=== PATIENT | female | born 1960 | race Caucasian/White ===

== ENCOUNTER 2017-09-22 20:18 | Inpatient (IN) | payer BC ==
[2017-09-22] MEDS ORDERED: Propofol 1,000 MG/100 ML VIAL IV ONE (20:49)
[2017-09-22 20:51] LABS: Bilirubin Negative (Negative); Blood, Urine Trace (Negative); Clarity CLEAR (Clear); Glucose, Urine (Dipstick) Negative (Negative); Leukocyte Negative (Negative); Nitrite Negative (Negative); Protein, Urine (Dipstick) Negative (Neg-Trace); Specific Gravity, Urine 1.003 (1.002-1.036); Urobilinogen 0.2 mg/dL (0.2-1.0); pH, Urine 8.5 (5.0-9.0)
[2017-09-22 20:54] LABS: Bacteria/HPF None Seen HPF (None Seen); Hyaline Casts/LPF 0-3 HYALINE CAST LPF (0-3 Hyaline); RBC/HPF 0-3 HPF (0-3); Squamous Epithelial 0-3 HPF (0-3); WBC/HPF 0-3 HPF (0-3)
[2017-09-22] MEDS ORDERED: levETIRAcetam 500 MG/100 ML PREMIX BAG ONE (21:24)
[2017-09-22 21:28] LABS: pH, Arterial 7.54 (7.35-7.45)
[2017-09-22 21:29] LABS: Actual Bicarbonate (HCO3a) 27.9 mEq/L (22-28); Analyzer IN Cardio ER; Base Excess (BEa) 5.4 mEq/L (-2.0 to +3.0); CO2 Tension 33.6 mmHg (35.0-45.0); Hematocrit-ABG 44.6 % (36.0-47.0); Hemoglobin (Hb) 11.8 g/dL (12.0-16.0); O2 Tension (PaO2) 229.8 mmHg (80.0-100.0)
[2017-09-22 21:30] LABS: Puncture Site LBA
--- NOTE | 2017-09-22 21:46 | RAD ---
AP VIEW OF THE CHEST 09/22/17 INDICATION: Intubation. COMPARISON: Prior exam performed on 09/22/17. FINDINGS: Since the comparison examination, there has been interval development of right upper lobe atelectasis . Left lung is clear. ET tube tip is seen 2.7 cm from the level of the al. No acute osseous abnor mality is evident. IMPRESSION: Intubated with right upper lobe atelectasis. Findings were called to Dr. Muñoz at 8:42 p.m. The findings may be related to mucus plugging or pos sibly aspiration. Occlusion of an aberrant right upper lobe bronchus cannot be entirely excluded. Thi s is a new finding from the most recent comparison performed at 6:54 p.m. Code CR POS: [facility]
[2017-09-22 21:56] LABS: Osmolality, Serum 233 mOsm/kg (280-295)
[2017-09-22] MEDS ORDERED: Dextrose 50% Abboject 50 ML SYRINGE SLOW IVP PRN (23:14)
[2017-09-22] MEDS ORDERED: Dextrose 5% in Water 1,000 ML IV PRN (23:14)
[2017-09-22] MEDS ORDERED: HumaLOG 300 UNITS/3 ML VIAL SC PRN (23:14)
[2017-09-22] MEDS ORDERED: Lorazepam 2 MG/ML VIAL SLOW IVP PRN (23:37)
[2017-09-23] MEDS ORDERED: Fentanyl BOLUS 250 ML IVPB PRN (00:35)
[2017-09-23] MEDS ORDERED: Propofol BOLUS 1,000 MG/100 ML VIAL IV PRN (00:35)
[2017-09-23] MEDS ORDERED: Lorazepam 2 MG/ML VIAL SLOW IVP PRN (00:35)
[2017-09-23] MEDS ORDERED: DISCONTINUE PREVIOUS NARCOTIC PAIN MEDICATIONS AND BENZODIAZEPINES FS SCH (00:35)
[2017-09-23] MEDS ORDERED: fentaNYL Citrate/PF 2,000 MCG in Sodium Chloride 0.9% 60 ML IV SCH (00:35)
[2017-09-23] MEDS ORDERED: Propofol 1,000 MG/100 ML VIAL IV ONE (00:43)
[2017-09-23] MEDS: Propofol 1,000 MG/100 ML VIAL IV PRN ×6 (00:44→22:33)
[2017-09-23] MEDS ORDERED: Ventilator Sedation Protocol 1 EACH FS SCH (00:45)
--- NOTE | 2017-09-23 03:01 | HP ---
CC: Unresponsiveness HISTORY OF PRESENT ILLNESS: Patient is a 56-year-old female with past medical history of anxiety and chronic alcohol use. Patient is presenting with unresponsiveness. History was obtained from EMS. Per EMS, the patient must have had status post seizure and was found down. Patient was last seen 4 days ago; therefore, the patient was known well. Per EMS, Ativan was given and the patient was intubated and the patient was brought to the hospital. In the hospital, in the ED, the patient obtained a CT of the head which showed subdural hematoma. The patient was also noted to have hypertension. At that time, the patient's labs were drawn and showing hyponatremia. The patient was then intubated and placed on the vent with respiratory rate of 12, tidal volume of 450, PEEP of 5. In the ED, the patient received Keppra 500 mg IV push and was started on propofol. Of note, patient was here in the hospital in 2014, the patient at that time was hyponatremic. REVIEW OF SYSTEMS: Cannot be obtained. Patient is currently intubated. PAST MEDICAL HISTORY: Obtained from previous records which showed history of anxiety, chronic alcohol use. PAST SURGICAL HISTORY: Per records, the patient does not have any past medical history. HOME MEDICATIONS: The patient takes Risperdal 0.5 mg per past medical history. At this point, patient is intubated. We will clarify with the patient. ALLERGIES: Patient is allergic to BLUE DYES. SOCIAL HISTORY: The patient is a chronic alcohol abuser. Per records, the patient does not smoke or use any recreational drugs. FAMILY HISTORY: Per chart, patient has family history which is relevant for coronary artery disease. PHYSICAL EXAMINATION: VITAL SIGNS: Blood pressure was 180/101, pulse is 71, respiratory rate of 12, oxygen saturation 99% on the ventilator. On admission, the patient's blood pressure was 149/96, pulse of 69, respiratory rate of 12, temperature of 100.8. GENERAL APPEARANCE: Patient is lying in bed. Patient is intubated, unresponsive on a propofol drip. GCS of 70. HEENT: Patient's pupil are reactive to light, closed. Mucous membranes are dry. NECK: Supple. CARDIOVASCULAR: Positive S1, S2. No murmurs, no rubs, no gallops appreciated. LUNGS: Clear to auscultation bilaterally, with ventilator lung sounds appreciated. ABDOMEN: Soft, nontender, nondistended, obese abdomen. EXTREMITIES: No edema noted. SKIN: Intact. No rashes. Warm and dry. NEUROLOGIC: Patient is currently intubated with a GCS of 70. PSYCHIATRIC: The patient is intubated. LABORATORY DATA: ABGs that was done in the ED showed a pH of 7.52, CO2 of 33.6 , oxygen tension of 229, base excess of 5.4. Sodium was 115. Serum osmolality is 233. Urine osmol is 123. CT of the head showed subdural hematoma which was 4 mm x 3.5 cm long. ASSESSMENT AND PLAN: This is a 56-year-old female with past medical history of anxiety and a history of hyponatremia, being admitted in the ICU for, 1. Respiratory failure most likely due to status post seizure. Patient was given Ativan on the field. The patient was intubated, currently on IV Keppra. Neurology has been consulted. We will do neuro checks q.2 hours. 2. Subdural hematoma, most likely secondary to fall. At this point, Neurosurgery has been consulted. We will monitor the hematoma closely. We will monitor blood pressure. We will try and keep blood pressure below 100. 3. Hypo-osmolar hyponatremia, most likely due to syndrome of inappropriate antidiuretic hormone secretion. The patient has urine-spot sodium of 31, urine osmol of 123 and serum osmol of 233. At this point, we will consult Nephrology and we will monitor the patient's sodium very closely. The patient will benefit from hypertonic saline; however, we will leave that up to Nephrology for their recommendations. 4. Acute respiratory failure. We will continue the patient on the vent. Currently, the patient's vent settings are patient's respiratory rate of 12, tidal volume of 450, PEEP of 5 and FiO2 of 50%. We will do morning ABGs. We will adjust ventilator settings accordingly. We have consulted Pulmonology. 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 5. History of anxiety. Patient is currently intubated. We will monitor the patient. 6. Deep venous thrombosis and gastrointestinal prophylaxis. We will do Pepcid for gastrointestinal prophylaxis and we will do SCDs for DVT prophylaxis. We will hold off all anticoagulation since patient is having intracranial bleed. DISPOSITION: At this point, we have admitted the patient to CCU. We will monitor the patient closely and we will follow up on morning labs and consultants. RAHUL
[2017-09-23 04:26] LABS: #Lymphocytes 1.3 thou/uL (1.20-3.40); #Monocytes 1.1 thou/uL (0.11-0.59); #Neutrophils 5.8 thou/uL (1.40-6.50); %Basophils 0.3 % (0.0-1.0); %Eosinophils 0.1 % (0.0-10.0); %Neutrophils 70.7 % (42.0-75.0); Hemoglobin 12.2 g/dL (12.0-16.0); Mean Corpuscular HGB CONC 36.4 g/dL (32.0-36.0); Mean Corpuscular Hemoglobin 31.8 pg (27.0-31.0); Mean Corpuscular Volume 87.4 fL (78.0-98.0); Mean Platelet Volume 6.5 fL (7.4-10.4); Platelet Count 254 thou/uL (130-400); RBC Distribution Width 11.2 % (11.5-14.5); Red Blood Cell (RBC) Count 3.82 mill/uL (4.20-5.40); White Blood Cell (WBC) Count 8.2 thou/uL (4.8-10.8)
[2017-09-23 04:38] LABS: ALT (SGPT) 28 U/L (8-55); AST (SGOT) 50 U/L (5-34); Albumin 4.1 g/dL (3.5-5.0); Alkaline Phosphatase 40 U/L (40-150); Anion Gap 14 mmol/L (10-20); BUN (Urea Nitrogen) 5 mg/dL (9.8-20.1); Calc. Creatinine Clearance 106 mL/min (70-130); Calcium 9.3 mg/dL (7.8-10.44); Carbon Dioxide 30 mmol/L (22-29); Chloride 80 mmol/L (98-107); Estimated GFR-MDRD 83; Globulin 2.8 g/dL (2.4-3.5); Glucose 92 mg/dL (70-105); Potassium 3.2 mmol/L (3.5-5.1); Protein, Total 6.9 g/dL (6.0-8.3); Sodium 121 mmol/L (136-145)
[2017-09-23 07:09] LABS: Actual Bicarbonate (HCO3a) 27.5 mEq/L (22-28); Base Excess (BEa) 6.1 mEq/L (-2.0 to +3.0); CO2 Tension 29.9 mmHg (35.0-45.0); Calcium, Ionized 1.1 mmol/L (1.12-1.30); Hemoglobin (Hb) 12.8 g/dL (12.0-16.0); O2 Tension (PaO2) 88.7 mmHg (80.0-100.0); Puncture Site RR; pH, Arterial 7.58 (7.35-7.45)
[2017-09-23 07:10] LABS: ALV-art Gradient 157.125 (0-20)
[2017-09-23] MEDS ORDERED: CCU Electrolyte Replacement 1 EACH FS ONE (08:16)
[2017-09-23] MEDS ORDERED: Potassium Phosphate 15 MMOL in Sodium Chloride 0.9% 250 ML 250 ML IV PRN (08:25)
[2017-09-23] MEDS ORDERED: Potassium Chloride 40 MEQ in Sodium Chloride 0.9% 250 ML 250 ML IVPB PRN (08:25)
[2017-09-23] MEDS ORDERED: Potassium Phosphate 12 MMOL in Sodium Chloride 0.9% 250 ML 250 ML IV PRN (08:25)
[2017-09-23] MEDS ORDERED: Magnesium 2 GM/NS 0.9% 100 ML 2 GM in Premix Bag 1 BAG IVPB PRN (08:25)
[2017-09-23] MEDS ORDERED: Potassium Chloride 40 MEQ in Premix Bag 1 BAG IVPB PRN (08:25)
[2017-09-23] MEDS ORDERED: CCU ELECTROLYTE REPLACEMENT PROTOCOL FS PRN (08:25)
[2017-09-23] MEDS ORDERED: Potassium Phosphate 9 MMOL in Sodium Chloride 0.9% 100 ML IVPB PRN (08:25)
[2017-09-23] MEDS ORDERED: Potassium Chloride 20 MEQ TAB PO PRN (08:25)
[2017-09-23] MEDS ORDERED: Magnesium Oxide 400 MG TAB PO PRN ×2 (08:25)
--- NOTE | 2017-09-23 08:34 | RAD ---
PORTABLE CHEST: Date: 09/22/17 HISTORY: Intubation. CCU follow-up. COMPARISON: 09/22/17. FINDINGS: ET tube and NG tube are noted. There is focal atelectasis and/or infiltrate in the medial right lung base, which is new. Evidence of small bilateral effusions. Upper lung jauregui are clear. IMPRESSION: New focal infiltrate or atelectasis in the medial right lung base. POS: [facility]
[2017-09-23 08:38] LABS: ALT (SGPT) 31 U/L (8-55); AST (SGOT) 52 U/L (5-34); Alkaline Phosphatase 42 U/L (40-150); Anion Gap 16 mmol/L (10-20); BUN (Urea Nitrogen) 5 mg/dL (9.8-20.1); Bilirubin, Total 0.9 mg/dL (0.2-1.2); Calc. Creatinine Clearance 112 mL/min (70-130); Calcium 9.3 mg/dL (7.8-10.44); Carbon Dioxide 28 mmol/L (22-29); Chloride 82 mmol/L (98-107); Estimated GFR-MDRD 89; Globulin 2.9 g/dL (2.4-3.5); Glucose 90 mg/dL (70-105); Protein, Total 6.9 g/dL (6.0-8.3); Sodium 123 mmol/L (136-145)
[2017-09-23] MEDS: Famotidine/PF 20 mg/2ml Vial SLOW IVP SCH ×2 (08:44→21:13)
--- NOTE | 2017-09-23 08:45 | CT ---
PRELIMINARY REPORT/[facility]/EMERGENTY AFTER-HOURS PROCEDURE Addendum created by Nicho Muse MD on 09/23/2017 3:55 AM Central Time ([place] & [place]) There is a small left frontotemporal subdural hematoma spanning 2 cm in maximum dimension and 3-4 mm in thickness. Initial Report created on 09/23/2017 3:50 AM Central Time ([place] & [place]) CT Head Without Intravenous Contrast EXAM DATE/TIME: 09/23/2017 3:39 AM CLINICAL HISTORY: 56 years old, female; Condition or disease; Other: Sdh; Patient HX: F/u sdh TECHNIQUE: Axial computed tomography images of the head/brain without intravenous contrast. COMPARISON: No relevant prior studies available. FINDINGS: Brain: Equivocal trace extra-axial blood along the superior falx cerebri. No prior studies for compar kyung. Brain otherwise unremarkable. No edema. Ventricles: Normal. No ventriculomegaly. Bones/joints: Normal. No acute fracture. Sinuses: Small hyperdense fluid levels in the left maxillary sinus and sphenoid sinus are probably bl ood related to trauma. Sinusitis not excluded. Mastoid air cells: Normal as visualized. No mastoid effusion. Soft tissues: Right parietal and right temporal scalp hematomas. Nasopharynx: Fluid secretions in the dependent nasopharynx. IMPRESSION: 1. Equivocal trace extra-axial blood along the superior falx cerebri. No prior studies for comparison . 2. Small hyperdense fluid levels in the left maxillary sinus and sphenoid sinus are probably blood re lated to trauma. Sinusitis not excluded. Thank you for allowing us to participate in the care of your patient. Dictated and Authenticated by: Nicho Muse MD 09/23/2017 3:50 AM Central Time ([place] & [place]) FINAL REPORT CT HEAD NONCONTRAST PERFORMED ON AN EMERGENCY BASIS: Date: 09/23/17 Time: 0339 hours HISTORY: Intracranial hematoma. Follow-up. COMPARISON: 09/22/17. FINDINGS: Findings agree with the preliminary report by Manuela. The left frontal subdural hematoma is much less c onspicuous than on the prior study. Barely visible on the current exam. Subtle hyperdensity along the anterior falx could represent a very small subdural component. No significant mass effect or shift o f midline structures. Prominent right frontoparietal scalp injury is again demonstrated. POS: [facility]
[2017-09-23] MEDS: Sodium Chloride 0.9% 1,000 ML IV SCH ×3 (08:47→21:18)
[2017-09-23 08:49] LABS: Potassium 2.6 mmol/L (3.5-5.1)
--- NOTE | 2017-09-23 09:45 | CON ---
DATE OF CONSULTATION: 09/22/2017 ATTENDING PHYSICIAN: Tremaine Carlos M.D. HISTORY OF PRESENT ILLNESS: The patient is a 56-year-old female who was transferred out to us from facility in [place] for altered mental status, subdural hematoma, and electrolyte abnormalities. History is obtained per EMS, it is limited by current condition and lack of family at the bedside. The patient was reportedly seen normal 4 days ago. She was found down earlier today by her daughter in the kitchen with blood on the floor near her. EMS was contacted and brought her to [facility] ER where she was evaluated with a CT head which was notable for a small left subdural hematoma. Her GCS was reportedly 9 at that time and she was awake and following some commands; however , she became somnolent and subsequently required intubation. She was transferred to our facility for further management. Other abnormalities were hyponatremia 115 and an elevated white count of 11.3, elevated lactic acid, 7.7 , and elevated CK-MB 24. I am seeing the patient at the bedside in the Emergency Department at [place]. She is currently intubated and sedated. Her pupils are small, equal, nonreactive. She currently has no cough or gag reflex. She has a decorticate posturing and is not withdrawing to pain at this time. She is not overbreathing the ventilator. PAST MEDICAL HISTORY: Notable for hypertension per previous records. PAST SURGICAL HISTORY: Left ovarian cyst removal. SOCIAL HISTORY: The patient reportedly drinks socially. No history of drug or smoking use according to prior records. FAMILY HISTORY: Noncontributory. ALLERGIES: The patient is allergic to BLUE DYE. CURRENT MEDICATION LIST: Unobtainable. REVIEW OF SYSTEMS: Unobtainable secondary to patient condition. PHYSICAL EXAMINATION: VITAL SIGNS: Blood pressure is 156/89; pulse of 65; respirations, patient is currently being mechanically ventilated; she is 98% on the ventilator. HEENT: Head: She has soft tissue swelling over the right posterior aspect of the scalp with small laceration to the right occipital region. Eyes: Pupils are small, fixed, and nonreactive. ENT: The patient is currently intubated. RESPIRATORY: She is being mechanically ventilated. CARDIOVASCULAR: Regular rate and rhythm. NEUROLOGIC: GCS 3, decorticate posturing. ASSESSMENT AND PLAN: The patient was found down for unknown period of time, last seen normal 4 [address] with a [address] head was shows small left-sided subdural hematoma which is consistent with contre coup injury. This is not adequately explained her current neurologic condition. She has multiple electrolyte abnormalities including elevated white counts, hyponatremia, elevated lactic acid. Unclear etiology that will need additional workup with a tox screen. We will plan to continue to monitor subdural intracranial bleed with repeat a.m. CT. Head of the bed should be elevated to 30 degrees and no anticoagulants should be given at this time. SBP less than 150. The patient should also be continued antiepileptics and I will order 500 mg of Keppra IV b.i.d. I have discussed this plan with Dr. Carlos who is in agreement. [facility]PITALZulay
[2017-09-23] MEDS: Potassium Chloride 20 MEQ in Premix Bag 1 BAG IVPB SCH ×4 (09:49→23:38)
--- NOTE | 2017-09-23 11:34 | PDOC.PN ---
- Subjective Encounter Start Date: 09/23/17 Encounter Start Time: 11:32 Subjective: intubated, sedated. when off sedation, uncooperative, tries to extubate charmaine - Objective MAR Reviewed: Yes Vital Signs & Weight: Vital Signs (12 hours) Temp Pulse Resp BP Pulse Ox 09/23/17 10:15 94 111/70 09/23/17 08:00 101.2 F H 09/23/17 07:32 89 134/76 99 09/23/17 06:00 16 09/23/17 04:00 16 09/23/17 03:00 99.7 F H 09/23/17 02:00 15 09/23/17 00:00 16 Weight Admit Weight 167 lb 11.2 oz Weight 167 lb 11.2 oz Most Recent Monitor Data Heart Rate from ECG 74 NIBP 112/78 NIBP BP-Mean 89 Respiration from ECG 15 SpO2 100 I&O: 09/22/17 09/23/17 09/24/17 06:59 06:59 06:59 Intake Total 223 300 Output Total 2950 415 Balance -2727 -115 Result Diagrams: 09/23/17 03:27 09/23/17 08:03 Phys Exam - Physical Examination Neck: no JVD Respiratory: clear to auscultation bilateral Cardiovascular: RRR, no significant murmur Gastrointestinal: soft, positive bowel sounds Musculoskeletal: pulses present, edema present Neurological: non-focal Dx/Plan (1) Encephalopathy acute Code(s): G93.40 - ENCEPHALOPATHY, UNSPECIFIED Status: Acute (2) Subdural hematoma Code(s): S06.5X9A - TRAUM SUBDR HEM W LOC OF UNSP DURATION, INIT Status: Acute (3) Hyponatremia Code(s): E87.1 - HYPO-OSMOLALITY AND HYPONATREMIA Status: Acute (4) Acute respiratory failure with hypoxia Code(s): J96.01 - ACUTE RESPIRATORY FAILURE WITH HYPOXIA Status: Acute (5) Alcohol abuse Code(s): F10.10 - ALCOHOL ABUSE, UNCOMPLICATED Status: Chronic - Plan vent per pulmonology -: replace Na, monitor -: replace K+ -: viamins -: discuss with NS, sheather * .
[2017-09-23] MEDS: Acetaminophen 650 MG Suppository PR PRN ×2 (11:37→21:19)
[2017-09-23 11:42] LABS: Amphetamine Not Detected (NotDetected); Barbiturates Screen Not Detected (NotDetected); Benzodiazepine Screen Detected (NotDetected); Cocaine Metabolite Screen Not Detected (NotDetected); Medtox Control Line Valid? VALID (VALID); Medtox Reader # READER 4; Methadone Not Detected (NotDetected); Methamphetamine Not Detected (NotDetected); Opiate Screen Not Detected (NotDetected); Oxycodone Screen Not Detected (NotDetected); Phencyclidine (PCP) Not Detected (NotDetected); THC/Cannabinoid Screen Not Detected (NotDetected); Tricyclic Screen Not Detected (NotDetected)
--- NOTE | 2017-09-23 12:20 | CON ---
DATE OF CONSULTATION: 09/23/2017 CONSULTING PHYSICIAN: Ronnie Pickering D.O. from the [facility]. REASON FOR CONSULTATION: Acute respiratory failure. HISTORY OF PRESENT ILLNESS: History is taken by reviewing the records in the chart. The patient cannot give history and family is not available. This is a 56-year-old female who apparently is a heavy drinker. She was found unresponsive at home. It was thought that she may have had a seizure. She was intubated. She was given some Keppra. She was found to have severe hyponatremia. She is also found to have a small left-sided subdural hematoma. PAST MEDICAL HISTORY: Chronic alcohol use. PAST SURGICAL HISTORY: None. MEDICATIONS PRIOR TO ADMISSION: Risperdal. ALLERGIES: BLUE DYE. SOCIAL HISTORY: Chronic alcohol use. Does not smoke, does not use illicit drugs. FAMILY MEDICAL HISTORY: Remarkable for coronary artery disease. REVIEW OF SYSTEMS: Cannot be obtained as patient is currently on mechanical ventilation. PHYSICAL EXAMINATION: VITAL SIGNS: Temperature 99.7, pulse 79, blood pressure 134/76, O2 sat 100%. GENERAL: She is currently on propofol drip, is not on any type of IV fluids. NEUROLOGIC: I cannot get her to withdraw the pain. I cannot get her to follow any commands. HEENT: Her pupils are 3 mm and reactive, sclerae icteric. Oropharynx clear. NECK: No JVD, no bruits. LUNGS: Clear without wheezing or rhonchi. CARDIAC: S1, S2 regular, without murmur, rub or gallop. ABDOMEN: Soft, nontender, nondistended. I cannot palpate her liver edge. EXTREMITIES: No clubbing, cyanosis, or edema. LABORATORY DATA: ABG: pH 7.58, PCO2 30, PO2 of 88, SIMV rate 12, total volume 400, PEEP 5, pressure support 10, FiO2 40%. White blood cell count 8.2, hematocrit 33.4, platelet count 254. Sodium 121, potassium 3.2, chloride 80, CO2 30, BUN 5, creatinine 0.7, glucose 92, AST 50, ALT 28. Serum osmolality 233. Her chest x-ray shows bilateral small pleural effusion. She has slight cardiomegaly. ET tube is in good position. She has a NG tube going in the stomach. CT of the head was reviewed and shows a small left-sided subdural hematoma. ASSESSMENT: 1. Acute respiratory failure requiring mechanical ventilation. 2. Possible seizure. 3. Subdural hematoma. 4. Alcohol abuse. 5. Hyponatremia. 6. Volume depletion. PLAN: 1. The patient will be started on normal saline. 2. Thiamine will be given. 3. Seizure precautions. 4. Neurology consult. 5. Neurosurgery consult for subdural hematoma. 6. She will remain intubated till her mental status has improved. 7. Replace electrolytes. 45 minutes CC time MTDD
[2017-09-23 13:03] LABS: ALT (SGPT) 30 U/L (8-55); AST (SGOT) 51 U/L (5-34); Alkaline Phosphatase 41 U/L (40-150); Anion Gap 14 mmol/L (10-20); BUN (Urea Nitrogen) 5 mg/dL (9.8-20.1); Bilirubin, Total 0.7 mg/dL (0.2-1.2); Calc. Creatinine Clearance 106 mL/min (70-130); Carbon Dioxide 28 mmol/L (22-29); Chloride 84 mmol/L (98-107); Estimated GFR-MDRD 83; Globulin 2.9 g/dL (2.4-3.5); Glucose 93 mg/dL (70-105); Protein, Total 6.9 g/dL (6.0-8.3); Sodium 123 mmol/L (136-145)
[2017-09-23 13:05] LABS: Potassium 2.8 mmol/L (3.5-5.1)
--- NOTE | 2017-09-23 14:50 | CON ---
DATE OF CONSULTATION: 09/23/2017 CONSULTING PHYSICIAN: ____ REASON FOR CONSULTATION: Hypernatremia. CHIEF COMPLAINT: Altered mentation. HISTORY OF PRESENT ILLNESS: This is a 56-year-old female with history of anxiety, chronic alcohol ab use, came to the hospital with altered mentation and possible seizures and being evaluated. The hank ent was seen in ICU. She is intubated and not able to give a history. Her close friend is at the [facility]. Daughter is coming to the hospital. No fever or chills reported. No chest pain before admis [place]. PAST MEDICAL HISTORY: Positive for chronic alcohol abuse and anxiety. PAST SURGICAL HISTORY: Not known. MEDICATIONS: Risperdal. ALLERGIES: BLUE DYE. SOCIAL HISTORY: Chronic alcohol abuse. No smoking or drugs. FAMILY HISTORY: No history of kidney disease. REVIEW OF SYSTEMS: Cannot be obtained the patient is intubated. PHYSICAL EXAMINATION: GENERAL: This is a well-built female seen in ICU, intubated. VITAL SIGNS: Temperature 101.2, pulse 94, respiratory 18, blood pressure 112/70. HEENT: Intubated. CARDIOVASCULAR: S1, S2 heard. RESPIRATORY: Clear. ABDOMEN: Soft. MUSCULOSKELETAL: 1+ edema. DERMATOLOGIC: No skin rash. NEUROLOGIC: Intubated. LABORATORY DATA: Hemoglobin is 12.2, pH is 7.58 with a pCO2 of 29.9, sodium 123 from 121 on admissio n, potassium 2.6, BUN is 5, creatinine 0.69. Urine sodium 31. Urine osmolality 123. ASSESSMENT AND PLAN: 1. Hyponatremia, unclear etiology. Lab suggests syndrome of inappropriate antidiuretic hormone secr etion, but volume depletion is a possibility. Plan is to start IV fluids, monitor sodium closely. C ontinue IV fluids, recheck sodium around 4:00 p.m. today and further decision will be made based on t he clinical course. 2. Hypokalemia, severe. Replace aggressively. Agree with checking magnesium and phosphorus. 3. Hypo-osmolality. 4. Hypoxic respiratory failure, currently intubated. 5. Hypochloremia. 6. Metabolic alkalosis, better. We will continue to monitor sodium and continue IV fluids for now.
--- NOTE | 2017-09-23 15:05 | PRG ---
DATE OF SERVICE: 09/23/2017 The patient is seen and examined, I agree with Edwina Carbone PA-C evaluation 09/22/2017. HISTORY OF PRESENT ILLNESS: The patient is a 56-year-old woman who was found down and unresponsive, was intubated and brought to the hospital. She has a history of alcohol abuse and has been previousl y hospitalized with hyponatremia and was found to have a sodium level of 121. She also had a witness ed seizure. CT scan of head was performed showing a very small left acute subdural hematoma. A follow up CT scan performed today shows no progression. The size of the hematoma is quite small and there is no mass effect. IMPRESSION AND PLAN: Incidental left subdural hematoma. This is likely posttraumatic in nature and is not relevant to her current symptomatology. With respect to the patient's seizures, she has been loaded with Keppra and these will hopefully resolve with correction of her hyponatremia. No specific neurosurgical recommendations at this time.
[2017-09-23] MEDS: Piperacillin/Tazobactam 3.375 GM in Sodium Chloride 0.9% 100 ML IVPB SCH ×2 (15:34→22:34)
[2017-09-23 17:39] LABS: ALT (SGPT) 27 U/L (8-55); AST (SGOT) 42 U/L (5-34); Albumin 3.7 g/dL (3.5-5.0); Alkaline Phosphatase 43 U/L (40-150); Anion Gap 13 mmol/L (10-20); BUN (Urea Nitrogen) 5 mg/dL (9.8-20.1); Bilirubin, Total 0.7 mg/dL (0.2-1.2); Calc. Creatinine Clearance 110 mL/min (70-130); Calcium 8.8 mg/dL (7.8-10.44); Carbon Dioxide 27 mmol/L (22-29); Chloride 86 mmol/L (98-107); Estimated GFR-MDRD 87; Globulin 2.7 g/dL (2.4-3.5); Glucose 87 mg/dL (70-105); Potassium 3.2 mmol/L (3.5-5.1); Protein, Total 6.4 g/dL (6.0-8.3); Sodium 123 mmol/L (136-145)
[2017-09-23 20:49] LABS: ALT (SGPT) 29 U/L (8-55); AST (SGOT) 46 U/L (5-34); Albumin 3.7 g/dL (3.5-5.0); Alkaline Phosphatase 42 U/L (40-150); Anion Gap 15 mmol/L (10-20); BUN (Urea Nitrogen) 4 mg/dL (9.8-20.1); Bilirubin, Total 0.6 mg/dL (0.2-1.2); Calc. Creatinine Clearance 112 mL/min (70-130); Calcium 8.7 mg/dL (7.8-10.44); Carbon Dioxide 24 mmol/L (22-29); Chloride 92 mmol/L (98-107); Estimated GFR-MDRD 89; Glucose 83 mg/dL (70-105); Potassium 3.6 mmol/L (3.5-5.1); Protein, Total 6.7 g/dL (6.0-8.3); Sodium 127 mmol/L (136-145)
--- NOTE | 2017-09-24 01:08 | CON ---
DATE OF CONSULTATION: 09/23/2017 REFERRING PHYSICIAN: Dr. Ronnie Pickering. REASON FOR CONSULTATION: Seizure. HISTORY OF PRESENT ILLNESS: Ms. Mix is a 56-year-old female who has been concerned fo r evaluation of seizures. History is obtained from patient's medical chart and dictated H&P note. Isiah yusuf has a history of anxiety and chronic alcohol use. She presented with unresponsiveness. She w as found down and she was last seen 4 days ago. She was intubated on scene and brought to the [facility]. On arrival to the emergency room, she had a CT head, which showed subdural hematoma. She was also noted to be hyponatremic with sodium level of 121. There was a concern that she may cifuentes ve had seizure as the cause for her becoming unresponsive, for which I am being asked to further eval uate. PAST MEDICAL HISTORY, PAST SURGICAL HISTORY, SOCIAL HISTORY, FAMILY HISTORY, CURRENT MEDICATIONS, AL LERGIES : Reviewed. Data as dictated H&P note done by Dr. Ronnie Pickering. REVIEW OF SYSTEMS: Unable to perform. PHYSICAL EXAMINATION: VITAL SIGNS: Blood pressure of 102/69, pulse of 83, temperature of 99.7 with T-max of 101.2, respira tions of 29 on mechanical ventilation. GENERAL: Intubated, sedated. female. RESPIRATORY: Clear to auscultation bilaterally. CARDIOVASCULAR: Regular rate and rhythm. NEUROLOGIC: Mental status: Patient is intubated and sedated. She is nonresponsive to verbal or nox ious stimuli. Cranial nerves, pupils are 3 mm and reactive. Face appears symmetric. She does breat he over the ventilator machine. She does have positive cough and gag reflex. Motor exam showed norm al tone and bulk in both upper and lower extremities. She withdraws to pain in both upper and lower extremities. LABORATORY DATA: Reviewed, which included CBC, CMP, urinalysis, urine drug screen, which is signific ant for sodium of 123, potassium of 3.2, chloride of 86. AST of 42, otherwise unremarkable. IMAGING STUDIES: CT head without contrast was reviewed, which showed small subdural hematoma involvi ng left frontal region. This is somewhat improved compared to the previous CT scan. IMPRESSION: 1. Left frontal subdural hematoma. 2. Seizures. 3. Alcohol abuse. 4. Hyponatremia. Ms. Mix is a 56-year-old female who presented with after being found down. There may be an epis ode of seizure before that led to the passing out spell. She is found to have left frontal subdural hematoma. She is also noted to have severe hyponatremia. The likelihood for her seizure is hyponatr emia and alcohol abuse. At this time, I agree with starting on Keppra 500 mg b.i.d. Continue suppor tive care. Continue current medical management. Thank you for consultation.
[2017-09-24] MEDS: Piperacillin/Tazobactam 3.375 GM in Sodium Chloride 0.9% 100 ML IVPB SCH ×4 (04:35→21:09)
[2017-09-24] MEDS: Sodium Chloride 0.9% 1,000 ML IV SCH ×3 (04:35→18:27)
[2017-09-24] MEDS: Propofol 1,000 MG/100 ML VIAL IV PRN (04:37)
[2017-09-24 05:09] LABS: ALT (SGPT) 25 U/L (8-55); AST (SGOT) 36 U/L (5-34); Albumin 3.4 g/dL (3.5-5.0); Alkaline Phosphatase 37 U/L (40-150); Anion Gap 12 mmol/L (10-20); BUN (Urea Nitrogen) 4 mg/dL (9.8-20.1); Bilirubin, Total 0.5 mg/dL (0.2-1.2); Calc. Creatinine Clearance 115 mL/min (70-130); Calcium 8.1 mg/dL (7.8-10.44); Carbon Dioxide 24 mmol/L (22-29); Chloride 98 mmol/L (98-107); Estimated GFR-MDRD Greater than 90; Globulin 2.5 g/dL (2.4-3.5); Glucose 87 mg/dL (70-105); Magnesium 1.9 mg/dL (1.6-2.6); Phosphorus 3.4 mg/dL (2.3-4.7); Protein, Total 5.9 g/dL (6.0-8.3); Sodium 131 mmol/L (136-145)
[2017-09-24 05:11] LABS: Potassium 2.9 mmol/L (3.5-5.1)
[2017-09-24] MEDS: Potassium Chloride 20 MEQ in Premix Bag 1 BAG IVPB SCH ×3 (06:27→14:06)
[2017-09-24 07:03] LABS: Actual Bicarbonate (HCO3a) 21.4 mEq/L (22-28); Base Excess (BEa) -2.3 mEq/L (-2.0 to +3.0); CO2 Tension 33.1 mmHg (35.0-45.0); Hemoglobin (Hb) 10.9 g/dL (12.0-16.0); O2 Tension (PaO2) 94.1 mmHg (80.0-100.0); pH, Arterial 7.43 (7.35-7.45)
[2017-09-24 07:04] LABS: ALV-art Gradient 147.725 (0-20); Calcium, Ionized 1.1 mmol/L (1.12-1.30); Puncture Site RB
--- NOTE | 2017-09-24 07:47 | PDOC.PN ---
- Subjective Encounter Start Date: 09/24/17 Encounter Start Time: 07:45 Subjective: intubated - Objective MAR Reviewed: Yes Vital Signs & Weight: Vital Signs (12 hours) Temp Pulse Resp BP Pulse Ox 09/24/17 06:51 61 101/50 L 100 09/24/17 06:00 12 09/24/17 04:01 60 09/24/17 04:00 98.7 F 11 L 09/24/17 02:00 12 09/24/17 00:18 73 108/63 09/24/17 00:00 98.7 F 13 09/23/17 22:00 13 09/23/17 20:00 100.5 F H 75 13 100 Weight Admit Weight 167 lb 11.2 oz Weight 167 lb 1.766 oz Most Recent Monitor Data Heart Rate from ECG 63 NIBP 101/50 NIBP BP-Mean 66 Respiration from ECG 17 SpO2 100 I&O: 09/23/17 09/24/17 09/25/17 06:59 06:59 06:59 Intake Total 223 3716 Output Total 2950 2785 Balance -2727 931 Result Diagrams: 09/23/17 03:27 09/24/17 04:36 Radiology Reviewed by me: Yes (cxr- ET tube in place, R hilar fullness) Phys Exam - Physical Examination Neck: no JVD Respiratory: clear to auscultation bilateral Cardiovascular: RRR, no significant murmur Gastrointestinal: soft, positive bowel sounds Musculoskeletal: edema present Dx/Plan (1) Encephalopathy acute Code(s): G93.40 - ENCEPHALOPATHY, UNSPECIFIED Status: Acute (2) Subdural hematoma Code(s): S06.5X9A - TRAUM SUBDR HEM W LOC OF UNSP DURATION, INIT Status: Acute (3) Hyponatremia Code(s): E87.1 - HYPO-OSMOLALITY AND HYPONATREMIA Status: Acute (4) Acute respiratory failure with hypoxia Code(s): J96.01 - ACUTE RESPIRATORY FAILURE WITH HYPOXIA Status: Acute (5) Alcohol abuse Code(s): F10.10 - ALCOHOL ABUSE, UNCOMPLICATED Status: Chronic (6) Hypokalemia Code(s): E87.6 - HYPOKALEMIA Status: Acute - Plan planned extubation this am -: Na improved to 131- cont NS -: cont K+ replacement -: vitamins -: assess neuro status post extubation * .
--- NOTE | 2017-09-24 08:10 | PRG ---
DATE OF SERVICE: 09/24/2017 Thirty-five minutes critical care time. Ms. Mix remains intubated on mechanical ventilation. I can get her to wake up and nod to comman ds. PHYSICAL EXAMINATION: VITAL SIGNS: Temperature is 98.7, pulse 63, blood pressure 101/50, O2 saturation 100%, intake for 24 hours 3716, output 2075, weight 167 pounds. HEENT: Pupils react. Sclerae anicteric. Oropharynx clear except for endotracheal tube in place. NECK: No JVD. LUNGS: Clear to auscultation without wheezing or rhonchi. CARDIOVASCULAR: S1, S2 regular, without murmur or gallop. ABDOMEN: Soft, nontender, nondistended. EXTREMITIES: No clubbing, cyanosis, or edema. LABORATORY DATA: Sodium 131, potassium 2.9, chloride 98, CO2 24, BUN 4, creatinine 0.6, glucose 87, AST 36, ALT 25, albumin 3.4. PH 7.43, pCO2 of 33, pO2 of 94 on SIMV rate 8, tidal volume 400, PEEP 5 , pressure support 10, FiO2 40%. White blood cell count 8.2, hematocrit 33.4, platelet count 254. ASSESSMENT: 1. Acute respiratory failure related to alcohol intoxication and possibly a seizure. 2. Hyponatremia, which is slowly improving. This is likely secondary to beer drinkers potomania. 3. Possible aspiration - the patient had fever yesterday. Her current x-ray does not show any evide nce of infiltrate. 4. Alcoholic refeeding syndrome with diminished electrolytes. PLAN: 1. The patient will be extubated. 2. Recheck electrolytes this afternoon and continue to supplement as needed. 3. Continue normal saline. 4. Start clear liquids. 5. Initiate physical therapy. 6. Continue IV thiamine.
--- NOTE | 2017-09-24 08:20 | RAD ---
PORTABLE CHEST: HISTORY: Respiratory distress. COMPARISON: Prior day's study. FINDINGS: Endotracheal and NG tubes are in satisfactory position. Heart size is at the upper limits of normal. Some interstitial changes in the bases appear fairly stable, as compared to the prior exam. Some o f the changes in the right base may be slightly improved. IMPRESSION: Fairly overall stable chest with perhaps minimal improvement to the right infrahilar lung change. POS: [facility]
[2017-09-24] MEDS: Famotidine/PF 20 mg/2ml Vial SLOW IVP SCH ×2 (09:43→19:58)
[2017-09-24 13:35] LABS: Potassium 3.5 mmol/L (3.5-5.1)
[2017-09-24] MEDS ORDERED: Potassium Chloride 2 MEQ in Premix Bag 1 BAG IVPB SCH (14:00)
[2017-09-24] MEDS ORDERED: Potassium Chloride 20 MEQ in Premix Bag 1 BAG IVPB SCH (14:00)
[2017-09-24 15:41] LABS: Magnesium 2.2 mg/dL (1.6-2.6); Phosphorus 3.3 mg/dL (2.3-4.7)
--- NOTE | 2017-09-24 18:13 | PRG ---
DATE OF SERVICE: 09/24/2017 SUBJECTIVE: Patient was seen and examined at bedside and overnight events noted. Patient denies any shortness of breath or chest pain or palpitation. No history of nausea or vomiting or diarrhea or f ever or chills or cramps. PHYSICAL EXAMINATION: GENERAL: This is a well-built female in no apparent distress. VITAL SIGNS: Temperature 98.7, pulse 60, respiratory rate 18, blood pressure 120/51. HEENT: Atraumatic, normocephalic. Oral mucosa is moist. NECK: Supple. CARDIOVASCULAR: S1, S2 heard. Rate and rhythm regular. RESPIRATORY: Clear to auscultation. GASTROINTESTINAL: Abdomen is soft. MUSCULOSKELETAL: No tenderness. No edema. DERMATOLOGIC: No skin rash. NEUROLOGIC: Alert and awake and oriented x3. No focal neurologic deficits. Moving all the extremit ies. PSYCHIATRIC: Mood and affect normal. LABORATORY DATA: Potassium is 3.5, sodium is 131, BUN 4, creatinine 0.6. ASSESSMENT AND PLAN: 1. Hyponatremia, much better with IV fluids, most likely from volume depletion since it corrected be tter with IV fluids. Continue on intravenous fluids, monitor sodium. 2. Hypokalemia, replaced. 3. Acute hypoxic respiratory failure, extubated this morning. 4. Metabolic acidosis. 5. Hypochloremia. Labs stable. Sodium is better. We will follow.
[2017-09-24 20:14] LABS: Potassium 3.9 mmol/L (3.5-5.1)
[2017-09-25] MEDS: Piperacillin/Tazobactam 3.375 GM in Sodium Chloride 0.9% 100 ML IVPB SCH ×3 (03:08→17:19)
[2017-09-25 03:54] LABS: Anion Gap 14 mmol/L (10-20); BUN (Urea Nitrogen) 4 mg/dL (9.8-20.1); Calc. Creatinine Clearance 112 mL/min (70-130); Calcium 8.4 mg/dL (7.8-10.44); Carbon Dioxide 22 mmol/L (22-29); Chloride 106 mmol/L (98-107); Estimated GFR-MDRD 89; Glucose 65 mg/dL (70-105); Magnesium 2.2 mg/dL (1.6-2.6); Phosphorus 3.3 mg/dL (2.3-4.7); Potassium 3.6 mmol/L (3.5-5.1); Sodium 138 mmol/L (136-145)
--- NOTE | 2017-09-25 08:20 | PRG ---
DATE OF SERVICE: 09/25/2017 She was successfully extubated yesterday. She looks comfortable. She says she is not having any dif ficulties. She does not know where she is, but does know the date. PHYSICAL EXAMINATION: VITAL SIGNS: On exam temperature is 98.7, pulse 60, blood pressure 125/67, O2 sat 100%. Total intak e for 24 hours 2943, output 1746. HEENT: Unremarkable. NECK: No JVD. CHEST: Clear. CARDIAC: S1 and S2 regular. ABDOMEN: Soft. EXTREMITIES: No edema. LABORATORY DATA: Sodium 138, potassium 3.6, chloride 106, CO2 22, BUN 4, creatinine 0.7, glucose 65. ASSESSMENT: 1. Status post alcohol intoxication with altered mental status. 2. Beer drinkers potomania with hyponatremia that is slowly improving. 3. Possible aspiration - had fever 2 days ago - seemed to have gotten better with antibiotics. 4. Encephalopathy. PLAN: She can be transferred out to the medical floor for further care. Continue thiamine supplemen tation, switch over to oral antibiotics. Discontinue Ohara catheter.
[2017-09-25] MEDS: Famotidine/PF 20 mg/2ml Vial SLOW IVP SCH (09:57)
[2017-09-25] MEDS: Sodium Chloride 0.9% 1,000 ML IV SCH (09:59)
--- NOTE | 2017-09-25 10:20 | PRG ---
DATE OF SERVICE: 09/25/2017 SUBJECTIVE: Patient was seen and examined at bedside and overnight events noted. Patient denies any shortness of breath or chest pain or palpitation. No history of nausea or vomiting or diarrhea or fever or chills or cramps. OBJECTIVE: GENERAL: This is a well-built female in no apparent distress. VITAL SIGNS: Temperature 98.7, pulse 77, respiratory rate 18, blood pressure 136/60. HEENT: Atraumatic, normocephalic. Oral mucosa is moist. NECK: Supple. CARDIOVASCULAR: S1, S2 heard. Rate and rhythm regular. RESPIRATORY: Clear to auscultation. GASTROINTESTINAL: Abdomen is soft. MUSCULOSKELETAL: No tenderness. No edema. DERMATOLOGIC: No skin rash. NEUROLOGIC: Alert and awake and oriented x3. No focal neurologic deficits. Moving all the extremities. PSYCHIATRIC: Mood and affect normal. LABORATORY DATA: Sodium 138, creatinine 0.6. ASSESSMENT AND PLAN: 1. Hyponatremia, better with IV fluids. I will sign off. 2. Hypokalemia, replace. 3. Metabolic acidosis. 4. Hypochloremia. 5. Labs are stable. I will sign off. Please call me back with any questions. MTDD
[2017-09-25 11:06] LABS: #Basophils 0.1 thou/uL (0.0-0.2); #Eosinphils 0.1 thou/uL (0.0-0.7); #Monocytes 0.5 thou/uL (0.11-0.59); #Neutrophils 4.5 thou/uL (1.40-6.50); %Basophils 1.1 % (0.0-1.0); %Eosinophils 0.9 % (0.0-10.0); %Lymphocytes 16.7 % (21.0-51.0); %Monocytes 8.7 % (0.0-10.0); %Neutrophils 72.7 % (42.0-75.0); Hemoglobin 10.7 g/dL (12.0-16.0); Mean Corpuscular HGB CONC 34.3 g/dL (32.0-36.0); Mean Corpuscular Hemoglobin 31.4 pg (27.0-31.0); Mean Corpuscular Volume 91.4 fL (78.0-98.0); Mean Platelet Volume 6.5 fL (7.4-10.4); Platelet Count 219 thou/uL (130-400); RBC Distribution Width 11.5 % (11.5-14.5); Red Blood Cell (RBC) Count 3.41 mill/uL (4.20-5.40); White Blood Cell (WBC) Count 6.1 thou/uL (4.8-10.8)
[2017-09-25] MEDS ORDERED: Enoxaparin Sodium 40 MG/0.4 ML SYRINGE SC SCH (16:15)
[2017-09-25] MEDS ORDERED: Amoxicillin/Potassium Clav 875 MG TAB PO SCH (16:30)
[2017-09-25] MEDS ORDERED: Famotidine 20 MG TAB PO SCH (16:30)
--- NOTE | 2017-09-25 20:58 | PDOC.PN ---
- Subjective Encounter Start Date: 09/25/17 Encounter Start Time: 15:00 Subjective: pt up in bed no complains - Objective Vital Signs & Weight: Vital Signs (12 hours) Temp Pulse Pulse Resp BP BP Pulse Ox 09/25/17 20:00 98.5 F 86 16 154/84 H 96 09/25/17 15:10 98.2 F 71 18 147/85 H 100 09/25/17 11:00 99.2 F 09/25/17 10:56 74 166/74 H Pulse Ox 09/25/17 20:00 09/25/17 15:10 09/25/17 11:00 09/25/17 10:56 100 Weight Admit Weight 167 lb 11.2 oz Weight 164 lb 10.95 oz Most Recent Monitor Data Heart Rate from ECG 65 NIBP 140/77 NIBP BP-Mean 93 Respiration from ECG 22 SpO2 100 I&O: 09/24/17 09/25/17 09/26/17 06:59 06:59 06:59 Intake Total 3816 2943.4 2737 Output Total 2785 1746 1611 Balance 1031 1197.4 1126 Result Diagrams: 09/25/17 10:53 09/26/17 04:39 Phys Exam - Physical Examination HEENT: PERRLA, moist MMs, sclera anicteric, TM's clear, oral pharynx no lesions , 2+ tonsils Neck: no nodes, no JVD, supple, full ROM Respiratory: no wheezing, no rales, no rhonchi, wheezing present, clear to auscultation bilateral Cardiovascular: RRR, no significant murmur, no rub, gallop, irregular Dx/Plan (1) Acute respiratory failure with hypoxia Code(s): J96.01 - ACUTE RESPIRATORY FAILURE WITH HYPOXIA Status: Acute (2) Encephalopathy acute Code(s): G93.40 - ENCEPHALOPATHY, UNSPECIFIED Status: Acute (3) Subdural hematoma Code(s): S06.5X9A - TRAUM SUBDR HEM W LOC OF UNSP DURATION, INIT Status: Acute (4) Alcohol abuse Code(s): F10.10 - ALCOHOL ABUSE, UNCOMPLICATED Status: Chronic (5) Hyponatremia Code(s): E87.1 - HYPO-OSMOLALITY AND HYPONATREMIA Status: Acute (6) Seizure Code(s): R56.9 - UNSPECIFIED CONVULSIONS Status: Acute - Plan will continue abx for now -: will also continue antiseizure meds and see PT eval * . Review of Systems - Review of Systems ENT: negative: Ear Pain, Ear Discharge, Nose Pain, Nose Discharge, Nose Congestion, Mouth Pain, Mouth Swelling, Throat Pain, Throat Swelling, Other Respiratory: negative: Cough, Dry, Shortness of Breath, Hemoptysis, SOB with Excertion, Pleuritic Pain, Sputum, Wheezing Cardiovascular: negative: chest pain, palpitations, orthopnea, paroxysmal nocturnal dyspnea, edema, light headedness, other Gastrointestinal: negative: Nausea, Vomiting, Abdominal Pain, Diarrhea, Constipation, Melena, Hematochezia, Other - Medications/Allergies Allergies/Adverse Reactions: Allergies Allergy/AdvReac Type Severity Reaction Status Date / Time blue dye Allergy Verified 09/23/17 00:37 Medications: Current Medications Acetaminophen (Tylenol) 650 mg [place] Q6H PRN PRN Reason: Fever Last Admin: 09/23/17 21:19 Dose: 650 mg Amoxicillin/Clavulanate Potassium (Augmentin) 875 mg PO Q12HR [facility] Last Admin: 09/26/17 10:23 Dose: 875 mg Dextrose/Water (Dextrose 50%) 25 gm SLOW IVP PRN PRN PRN Reason: Hypoglycemia Enoxaparin Sodium (Lovenox) 40 mg SC 0900 [facility] Last Admin: 09/26/17 10:21 Dose: 40 mg Famotidine (Pepcid) 20 mg PO BID [facility] Last Admin: 09/26/17 10:22 Dose: 20 mg Glucagon (Glucagon) 1 mg IM PRN PRN PRN Reason: Hypoglycemia Dextrose/Water (D5w) 1,000 mls @ 0 mls/hr IV .Q0M PRN PRN Reason: Hypoglycemia Insulin Human Lispro (Humalog) 0 units SC .MILD SLIDING SCALE PRN PRN Reason: Mild Correctional Scale Levetiracetam (Keppra) 500 mg PO BID [facility] Lorazepam (Ativan) 2 mg SLOW IVP Q4H PRN PRN Reason: Seizures Lorazepam (Ativan) 2 mg SLOW IVP Q1H PRN PRN Reason: Breakthrough agitation Stop: 10/23/17 00:35 Last Admin: 09/23/17 03:25 Dose: 2 mg Thiamine HCl (Thiamine) 100 mg PO DAILY [facility] Last Admin: 09/26/17 10:22 Dose: 100 mg
[2017-09-26] MEDS: Sodium Chloride 0.9% 1,000 ML IV SCH (02:14)
[2017-09-26 05:18] LABS: Anion Gap 11 mmol/L (10-20); BUN (Urea Nitrogen) Less than 4 mg/dL (9.8-20.1); Calc. Creatinine Clearance 126 mL/min (70-130); Calcium 8.4 mg/dL (7.8-10.44); Carbon Dioxide 24 mmol/L (22-29); Chloride 106 mmol/L (98-107); Estimated GFR-MDRD Greater than 90; Glucose 109 mg/dL (70-105); Magnesium 1.7 mg/dL (1.6-2.6); Phosphorus 2.7 mg/dL (2.3-4.7); Potassium 3.4 mmol/L (3.5-5.1); Sodium 138 mmol/L (136-145)
[2017-09-26] MEDS ORDERED: Potassium Chloride 20 MEQ TAB PO SCH (10:00)
[2017-09-26] MEDS ORDERED: levETIRAcetam 500 MG TAB PO SCH (10:15)
[2017-09-26] MEDS: Enoxaparin Sodium 40 MG/0.4 ML SYRINGE SC SCH (10:21)
[2017-09-26] MEDS: Famotidine 20 MG TAB PO SCH ×2 (10:22→20:08)
[2017-09-26] MEDS: Amoxicillin/Potassium Clav 875 MG TAB PO SCH ×2 (10:23→20:09)
--- NOTE | 2017-09-26 13:28 | PRG ---
DATE OF SERVICE: 09/26/2017 SUBJECTIVE: The patient is doing well, had no complaints today. OBJECTIVE: VITAL SIGNS: Temperature 98.8, pulse 67, blood pressure 145/70, O2 sat 95%. HEENT: Unremarkable. NECK: No JVD. CHEST: Clear without wheezing or rhonchi. CARDIAC: S1, S2 regular. ABDOMEN: Soft. EXTREMITIES: No edema. LABORATORY DATA: Sodium 130, potassium 3.4, chloride 106, CO2 24, BUN 4, creatinine 0.6, glucose 109 . ASSESSMENT: 1. Status post respiratory failure, requiring mechanical ventilation. 2. Status post binge drinking. 3. Improved hyponatremia - etiology likely beer drinkers potomania. 4. Possible aspiration. PLAN: The patient was switched to oral antibiotics yesterday. I would finish out 7 days of oral ant ibiotics. She seems back to baseline from a pulmonary standpoint. I think she can safely be transfe rred home. No further pulmonary recommendations. We will sign off. Please recall if further assist ance needed.
--- NOTE | 2017-09-26 14:26 | PDOC.PN ---
- Subjective Encounter Start Date: 09/26/17 Encounter Start Time: 10:45 Subjective: pt up in bed no complains - Objective Vital Signs & Weight: Vital Signs (12 hours) Temp Pulse Resp BP BP Pulse Ox 09/26/17 11:28 98.3 F 70 16 163/88 H 98 09/26/17 08:00 98.8 F 67 16 95 09/26/17 07:02 98.8 F 67 16 145/78 H 95 09/26/17 04:00 98.4 F 67 16 151/84 H 94 L Weight Admit Weight 167 lb 11.2 oz Weight 166 lb 10.711 oz Most Recent Monitor Data Heart Rate from ECG 65 NIBP 140/77 NIBP BP-Mean 93 Respiration from ECG 22 SpO2 100 I&O: 09/25/17 09/26/17 09/27/17 06:59 06:59 06:59 Intake Total 2943.4 3717 200 Output Total 1746 1611 Balance 1197.4 2106 200 Result Diagrams: 09/25/17 10:53 09/26/17 04:39 Phys Exam - Physical Examination HEENT: PERRLA, moist MMs, sclera anicteric, TM's clear, oral pharynx no lesions , 2+ tonsils Neck: no nodes, no JVD, supple, full ROM Respiratory: no wheezing, no rales, no rhonchi, wheezing present, clear to auscultation bilateral Cardiovascular: RRR, no significant murmur, no rub, gallop, irregular Gastrointestinal: soft, non-tender, no distention, positive bowel sounds Dx/Plan (1) Acute respiratory failure with hypoxia Code(s): J96.01 - ACUTE RESPIRATORY FAILURE WITH HYPOXIA Status: Acute (2) Encephalopathy acute Code(s): G93.40 - ENCEPHALOPATHY, UNSPECIFIED Status: Acute (3) Subdural hematoma Code(s): S06.5X9A - TRAUM SUBDR HEM W LOC OF UNSP DURATION, INIT Status: Acute (4) Alcohol abuse Code(s): F10.10 - ALCOHOL ABUSE, UNCOMPLICATED Status: Chronic (5) Hyponatremia Code(s): E87.1 - HYPO-OSMOLALITY AND HYPONATREMIA Status: Acute (6) Seizure Code(s): R56.9 - UNSPECIFIED CONVULSIONS Status: Acute - Plan will continue current tx -: will talk with family in regards to discharge * . Review of Systems - Review of Systems ENT: negative: Ear Pain, Ear Discharge, Nose Pain, Nose Discharge, Nose Congestion, Mouth Pain, Mouth Swelling, Throat Pain, Throat Swelling, Other Respiratory: negative: Cough, Dry, Shortness of Breath, Hemoptysis, SOB with Excertion, Pleuritic Pain, Sputum, Wheezing Cardiovascular: negative: chest pain, palpitations, orthopnea, paroxysmal nocturnal dyspnea, edema, light headedness, other Gastrointestinal: negative: Nausea, Vomiting, Abdominal Pain, Diarrhea, Constipation, Melena, Hematochezia, Other - Medications/Allergies Allergies/Adverse Reactions: Allergies Allergy/AdvReac Type Severity Reaction Status Date / Time blue dye Allergy Verified 09/23/17 00:37 Medications: Current Medications Acetaminophen (Tylenol) 650 mg [place] Q6H PRN PRN Reason: Fever Last Admin: 09/23/17 21:19 Dose: 650 mg Amoxicillin/Clavulanate Potassium (Augmentin) 875 mg PO Q12HR [facility] Last Admin: 09/26/17 10:23 Dose: 875 mg Dextrose/Water (Dextrose 50%) 25 gm SLOW IVP PRN PRN PRN Reason: Hypoglycemia Enoxaparin Sodium (Lovenox) 40 mg SC 0900 [facility] Last Admin: 09/26/17 10:21 Dose: 40 mg Famotidine (Pepcid) 20 mg PO BID [facility] Last Admin: 09/26/17 10:22 Dose: 20 mg Glucagon (Glucagon) 1 mg IM PRN PRN PRN Reason: Hypoglycemia Dextrose/Water (D5w) 1,000 mls @ 0 mls/hr IV .Q0M PRN PRN Reason: Hypoglycemia Insulin Human Lispro (Humalog) 0 units SC .MILD SLIDING SCALE PRN PRN Reason: Mild Correctional Scale Levetiracetam (Keppra) 500 mg PO BID [facility] Lorazepam (Ativan) 2 mg SLOW IVP Q4H PRN PRN Reason: Seizures Lorazepam (Ativan) 2 mg SLOW IVP Q1H PRN PRN Reason: Breakthrough agitation Stop: 10/23/17 00:35 Last Admin: 09/23/17 03:25 Dose: 2 mg Thiamine HCl (Thiamine) 100 mg PO DAILY [facility] Last Admin: 09/26/17 10:22 Dose: 100 mg
[2017-09-26] MEDS: levETIRAcetam 500 MG TAB PO SCH (20:09)
[2017-09-27 06:26] LABS: Anion Gap 9 mmol/L (10-20); BUN (Urea Nitrogen) Less than 4 mg/dL (9.8-20.1); Calc. Creatinine Clearance 116 mL/min (70-130); Calcium 8.6 mg/dL (7.8-10.44); Carbon Dioxide 28 mmol/L (22-29); Chloride 105 mmol/L (98-107); Estimated GFR-MDRD Greater than 90; Glucose 98 mg/dL (70-105); Magnesium 1.7 mg/dL (1.6-2.6); Phosphorus 3.6 mg/dL (2.3-4.7); Potassium 3.8 mmol/L (3.5-5.1); Sodium 138 mmol/L (136-145)
[2017-09-27] MEDS: levETIRAcetam 500 MG TAB PO SCH ×2 (08:47→20:29)
[2017-09-27] MEDS: Famotidine 20 MG TAB PO SCH ×2 (08:47→20:29)
[2017-09-27] MEDS: Amoxicillin/Potassium Clav 875 MG TAB PO SCH ×2 (08:47→20:29)
[2017-09-27] MEDS: Enoxaparin Sodium 40 MG/0.4 ML SYRINGE SC SCH (08:48)
[2017-09-27] MEDS ORDERED: Acetaminophen 325 MG TAB PO PRN (15:05)
--- NOTE | 2017-09-27 20:08 | PDOC.PN ---
- Subjective Encounter Start Date: 09/27/17 Encounter Start Time: 14:50 Subjective: pt up in chair no complains - Objective Vital Signs & Weight: Vital Signs (12 hours) Temp Pulse Resp BP Pulse Ox 09/27/17 19:33 98.6 F 101 H 18 136/80 99 Weight Admit Weight 167 lb 11.2 oz Weight 166 lb 10.711 oz Most Recent Monitor Data Heart Rate from ECG 65 NIBP 140/77 NIBP BP-Mean 93 Respiration from ECG 22 SpO2 100 I&O: 09/26/17 09/27/17 09/28/17 06:59 06:59 06:59 Intake Total 3717 1030 Output Total 1611 Balance 2106 1030 Result Diagrams: 09/25/17 10:53 09/27/17 05:48 Phys Exam - Physical Examination HEENT: PERRLA, moist MMs, sclera anicteric, TM's clear, oral pharynx no lesions , 2+ tonsils Respiratory: no wheezing, no rales, no rhonchi, wheezing present, clear to auscultation bilateral Cardiovascular: RRR, no significant murmur, no rub, gallop, irregular Gastrointestinal: soft, non-tender, no distention, positive bowel sounds Dx/Plan (1) Acute respiratory failure with hypoxia Code(s): J96.01 - ACUTE RESPIRATORY FAILURE WITH HYPOXIA Status: Acute (2) Encephalopathy acute Code(s): G93.40 - ENCEPHALOPATHY, UNSPECIFIED Status: Acute (3) Subdural hematoma Code(s): S06.5X9A - TRAUM SUBDR HEM W LOC OF UNSP DURATION, INIT Status: Acute (4) Alcohol abuse Code(s): F10.10 - ALCOHOL ABUSE, UNCOMPLICATED Status: Chronic (5) Hyponatremia Code(s): E87.1 - HYPO-OSMOLALITY AND HYPONATREMIA Status: Acute (6) Seizure Code(s): R56.9 - UNSPECIFIED CONVULSIONS Status: Acute - Plan spoke with pt and friend that pt cannot go home alone -: she will need to stay with somone or go to rehab -: she will not be able to drive due to seizure -: medically pt is stable possible dischare in next 24-48hr * . Review of Systems - Review of Systems Respiratory: negative: Cough, Dry, Shortness of Breath, Hemoptysis, SOB with Excertion, Pleuritic Pain, Sputum, Wheezing Cardiovascular: negative: chest pain, palpitations, orthopnea, paroxysmal nocturnal dyspnea, edema, light headedness, other Gastrointestinal: negative: Nausea, Vomiting, Abdominal Pain, Diarrhea, Constipation, Melena, Hematochezia, Other Genitourinary: negative: Dysuria, Frequency, Incontinence, Hematuria, Retention , Other - Medications/Allergies Allergies/Adverse Reactions: Allergies Allergy/AdvReac Type Severity Reaction Status Date / Time blue dye Allergy Verified 09/23/17 00:37 Medications: Current Medications Acetaminophen (Tylenol) 650 mg [place] Q6H PRN PRN Reason: Fever Last Admin: 09/23/17 21:19 Dose: 650 mg Acetaminophen (Tylenol) 650 mg PO Q6H PRN PRN Reason: Headache/Fever or Pain Last Admin: 09/27/17 15:26 Dose: 650 mg Amoxicillin/Clavulanate Potassium (Augmentin) 875 mg PO Q12HR [facility] Last Admin: 09/27/17 08:47 Dose: 875 mg Dextrose/Water (Dextrose 50%) 25 gm SLOW IVP PRN PRN PRN Reason: Hypoglycemia Enoxaparin Sodium (Lovenox) 40 mg SC 0900 [facility] Last Admin: 09/27/17 08:48 Dose: 40 mg Famotidine (Pepcid) 20 mg PO BID [facility] Last Admin: 09/27/17 08:47 Dose: 20 mg Glucagon (Glucagon) 1 mg IM PRN PRN PRN Reason: Hypoglycemia Dextrose/Water (D5w) 1,000 mls @ 0 mls/hr IV .Q0M PRN PRN Reason: Hypoglycemia Insulin Human Lispro (Humalog) 0 units SC .MILD SLIDING SCALE PRN PRN Reason: Mild Correctional Scale Levetiracetam (Keppra) 500 mg PO BID [facility] Last Admin: 09/27/17 08:47 Dose: 500 mg Lorazepam (Ativan) 2 mg SLOW IVP Q4H PRN PRN Reason: Seizures Lorazepam (Ativan) 2 mg SLOW IVP Q1H PRN PRN Reason: Breakthrough agitation Stop: 10/23/17 00:35 Last Admin: 09/23/17 03:25 Dose: 2 mg Thiamine HCl (Thiamine) 100 mg PO DAILY [facility] Last Admin: 09/27/17 08:47 Dose: 100 mg
[2017-09-28 05:28] LABS: Anion Gap 11 mmol/L (10-20); BUN (Urea Nitrogen) 4 mg/dL (9.8-20.1); Calc. Creatinine Clearance 116 mL/min (70-130); Calcium 8.9 mg/dL (7.8-10.44); Carbon Dioxide 28 mmol/L (22-29); Chloride 104 mmol/L (98-107); Estimated GFR-MDRD Greater than 90; Glucose 96 mg/dL (70-105); Magnesium 1.9 mg/dL (1.6-2.6); Phosphorus 4.7 mg/dL (2.3-4.7); Potassium 3.8 mmol/L (3.5-5.1); Sodium 139 mmol/L (136-145)
[2017-09-28] MEDS: Enoxaparin Sodium 40 MG/0.4 ML SYRINGE SC SCH (09:27)
[2017-09-28] MEDS: Amoxicillin/Potassium Clav 875 MG TAB PO SCH (09:28)
[2017-09-28] MEDS: Famotidine 20 MG TAB PO SCH (09:28)
[2017-09-28] MEDS: levETIRAcetam 500 MG TAB PO SCH (09:28)
[2017-09-28 14:34] VITALS: BMI 26.8
[2017-09-28] MEDS ORDERED: Mag-Al 1200 mg/1200 mg/30 ML UDCUP PO PRN (14:49)
--- NOTE | 2017-09-28 15:44 | DIS ---
DATE OF ADMISSION: 09/22/2017 DATE OF DISCHARGE: 09/28/2017 DISCHARGE DIAGNOSES: As of the followin. Acute hypoxic respiratory failure. 2. Metabolic encephalopathy. 3. Subdural hematoma. 4. Hyponatremia. 5. Seizure. 6. Possible alcohol abuse. HOSPITAL COURSE: The patient is a 56-year-old female who initially was brought in to the hospital af ter she was found down. Patient was unresponsive. She was intubated, apparently had a seizure. Liv manrique also had a CT of the head which indicated a subdural hematoma. Patient also was seen by Neurolo gy and who agreed to continue putting patient on Keppra and also thought the seizure could be seconda ry after hyponatremia. The patient then was extubated on 09/24/2017. She was then transferred to [facility] floor. Patient also was treated for possible aspiration pneumonia. Again, upon discharge, the liv manrique was awake, alert, oriented x3. She was discharged to her daughter, Sarai phone [phone]. I did speak with her. I told her that the patient cannot drive. I also told the patient she cannot drive unless she is seen by Neurology and that the patient cannot live by herself. She needs to be under someone supervision for now. The patient's home medications are as of the following; lisinopril 10 mg daily, BuSpar 10 mg b.i.d., Keppra 500 mg b.i.d., thiamine 100 mg p.o. daily, Pepcid 20 mg b.i.d., amoxicillin, Augmentin 875 p.o . q.12 hours for 2 more days. PHYSICAL EXAMINATION: VITAL SIGNS: Temperature of 98.5, 70, 16, 95% room air, 155/89. GENERAL: She is awake, alert, and oriented x3. She has no apparent distress. CARDIOVASCULAR: S1, S2 present. No murmurs, rubs or gallops. ABDOMEN: Soft, nontender. Bowel sounds are present x2. EXTREMITIES: No edema. Pedal pulses are present x2. She will be discharged to home. She will follow up with PCP and also Neurology as outpatient.
[2017-09-28 16:08] VITALS: BP 146/84; TEMP 98.3
== END 2017-09-28 17:10 | disposition home or self-care (01) | DRG 208 ==
LOC: ERS 20:18 → CCU 21:30 → T4-A 09-25 15:11
PROVIDERS: ADMIT Internal Medicine; ATTEND Internal Medicine
PROC: 5A1945Z Respiratory Ventilation, 24-96 Consecutive Hours (ICD-10-PCS; principal; 2017-09-22)
PROC: 0BH17EZ Insertion of Endotracheal Airway into Trachea, Via Natural or Artificial Opening (ICD-10-PCS; 2017-09-22)
DX: J96.01 Acute respiratory failure with hypoxia (principal); S06.5X1A Traumatic subdural hemorrhage with loss of consciousness of 30 minutes or less, initial encounter; G93.41 Metabolic encephalopathy; J69.0 Pneumonitis due to inhalation of food and vomit; E87.1 Hypo-osmolality and hyponatremia; E87.2 Acidosis; I10 Essential (primary) hypertension; F10.10 Alcohol abuse, uncomplicated; W19.XXXA Unspecified fall, initial encounter; Y92.9 Unspecified place or not applicable; E87.6 Hypokalemia
CPT/HCPCS: 36415; 70450; 71045; 80048; 80053; 80306; 82140; 82805; 83735; 83930; 83935; 84100; 84300; 85025; 93005; 94002; 94003; 94760; 95816; 95819; 96365; 96366; 96375; G8978-GP-CM; G8979-GP-CI; G8987-GO-CL; G8988-GO-CI; G8996-GN-CJ; G8997-GN-CH; J1650; J1953; J2060; J2543; J2704; J3411; J3475; J3480; J7050; S0028

== ENCOUNTER 2020-12-17 12:47 | Outpatient (CLI) | payer BC | END 2020-12-17 12:48 | disposition home or self-care (01) | LOC: BICMAMMO 12:47 | PROVIDERS: ATTEND Family Medicine | DX: Z12.31 Encounter for screening mammogram for malignant neoplasm of breast (principal) | CPT/HCPCS: 77063; 77067 ==

== ENCOUNTER 2021-12-19 13:57 | Outpatient (CLI) | payer BC | END 2021-12-19 13:58 | disposition home or self-care (01) | LOC: BICMAMMO 13:57 | PROVIDERS: ATTEND Family Medicine | DX: Z12.31 Encounter for screening mammogram for malignant neoplasm of breast (principal) | CPT/HCPCS: 77063; 77067 ==

== ENCOUNTER 2022-12-30 11:59 | Outpatient (CLI) | payer BC | END 2022-12-30 12:00 | disposition home or self-care (01) | LOC: BICMAMMO 11:59 | PROVIDERS: ATTEND Family Medicine | DX: Z12.31 Encounter for screening mammogram for malignant neoplasm of breast (principal) | CPT/HCPCS: 77063; 77067 ==

== ENCOUNTER 2024-02-02 10:03 | Outpatient (CLI) | payer BC | END 2024-02-02 10:04 | disposition home or self-care (01) | LOC: BICMAMMO 10:03 | PROVIDERS: ATTEND Physician Assistant | DX: Z12.31 Encounter for screening mammogram for malignant neoplasm of breast (principal) | CPT/HCPCS: 77063; 77067 ==

== ENCOUNTER 2025-02-01 12:04 | Outpatient (CLI) | payer BC | END 2025-02-01 12:05 | disposition home or self-care (01) | LOC: BICMAMMO 12:04 | PROVIDERS: ATTEND Family Medicine | DX: Z12.31 Encounter for screening mammogram for malignant neoplasm of breast (principal) | CPT/HCPCS: 77063; 77067 ==